=== PATIENT | female | born 1990 | race African-American/Black ===

== ENCOUNTER 2021-09-23 21:07 | Emergency (ER) | payer MEDICAID, OTHER ==
[~2021-09-23] VITALS: Ht 170.2 cm; Wt 90.0 kg
[~2021-09-23 21:07] MED LIST: ALBU25PO2; FERR-43 PO; FOLI-43 PO; PREN-88 PO
[2021-09-23 21:32] VITALS: BP 146/98
== END 2021-09-23 23:33 | disposition left against medical advice (07) ==
LOC: ER 21:07
DX: R07.9 Chest pain, unspecified (principal); R20.0 Anesthesia of skin; Z53.21 Procedure and treatment not carried out due to patient leaving prior to being seen by health care provider
CPT/HCPCS: 93005